=== PATIENT | male | born 1950 | race Caucasian/White ===

== ENCOUNTER → 2020-06-17 12:10 | Outpatient (CLI) | payer MEDICARE, SELFPAY ==
--- NOTE | ~2020-06-17 | XR_ITS ---
XR elbow LT min 3V DATE: 06/17/2020 12:21 INDICATION: Left elbow pain TECHNIQUE: 4 views COMPARISON: 07/07/2018 left elbow FINDINGS: Small dorsal olecranon process spur. Mild spurring of the coronoid process of the proximal ulna. Elevation of the anterior fat pad is suggested. Compared to 07/07/2018 there is slight angulation at the junction of the radial head and neck, suggest ing possible very subtle radial neck fracture. IMPRESSION: Very subtle nondisplaced radial neck fracture is suggested, with hemarthrosis Reviewed, dictated and finalized at location A. 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
== END ==
PROVIDERS: PCP Family Medicine; Visit Provider Nurse Practitioner Family
DX: M25.522 Pain in left elbow (principal)
CPT/HCPCS: 73080

== ENCOUNTER 2020-06-25 16:45 | Outpatient (CLI) | payer MEDICARE, SELFPAY | END 2020-06-25 16:46 | disposition home or self-care (01) | LOC: ANHCOVIDVC 16:46 | PROVIDERS: PCP Family Medicine | DX: Z23 Encounter for immunization (principal) | CPT/HCPCS: 0001A; 91300 ==

== ENCOUNTER 2020-07-16 16:39 | Outpatient (CLI) | payer MEDICARE, SELFPAY | END 2020-07-16 16:40 | disposition home or self-care (01) | LOC: ANHCOVIDVC 16:39 | PROVIDERS: PCP Family Medicine | DX: Z23 Encounter for immunization (principal) | CPT/HCPCS: 0002A; 91300 ==

== ENCOUNTER 2022-09-08 14:02 | Outpatient (CLI) | payer MEDICARE, SELFPAY ==
[2022-09-08 20:55] LABS: Alanine Aminotransferase 24 U/L (6-50); Albumin Level 4.1 g/dL (3.5-5.1); Alkaline Phosphatase 67 U/L (38-126); Anion Gap 4 mmol/L (8-16); Aspartate Amino Transferase 32 U/L (17-59); Bilirubin,Total 0.7 mg/dL (0.2-1.3); Blood Urea Nitrogen 10 mg/dL (9-20); Calcium 8.8 mg/dL (8.4-10.2); Carbon Dioxide 33 mmol/L (22-30); Chloride 103 mmol/L (98-107); Estimated Glomerular Filt Rate > 60; Glucose 91 mg/dL (65-110); Potassium 4.6 mmol/L (3.4-5.0); Sodium 140 mmol/L (137-145)
== END 2022-09-08 14:03 | disposition home or self-care (01) ==
LOC: ANHGOSHLAB 14:03
PROVIDERS: PCP Family Medicine; Visit Provider Family Medicine
DX: R79.89 Other specified abnormal findings of blood chemistry (principal); E78.5 Hyperlipidemia, unspecified; R41.3 Other amnesia
CPT/HCPCS: 36415; 80053; 84443

== ENCOUNTER 2022-10-24 10:45 | Emergency (ER) | payer MEDICARE, SELFPAY ==
[2022-10-24] VITALS (22 sets, daily range): BP systolic 132–174; BP diastolic 70–90; PULSE 75–97; RESP 12–25; TEMP 37.2; O2SAT 91–98
--- NOTE | ~2022-10-24 | CT_ITS ---
EXAMINATION: CT abdomen pelvis w con INDICATION: Epigastric and left upper quadrant pain TECHNIQUE: Computed tomographic images of the abdomen and pelvis were obtained after the administrati on of 100 cc of Omnipaque 350 intravenous contrast. The dose-length product (DLP) was 440.70 mGy-cm. Automated exposure control and iterative reconstruction technique were employed. COMPARISON: None available FINDINGS: Minimal dependent atelectasis is present in the lung bases. The heart size is normal. Punct ate calcifications in an otherwise normal spleen likely represent healed granulomatous disease. The l iver, pancreas, gallbladder, and adrenal glands are normal. The right kidney is unremarkable. There i s a 3.3 cm hyperattenuating mass of the posterior left mid kidney. No pathologically enlarged abdomin al or pelvic lymph nodes are identified. There is calcified atherosclerosis of the aorta and many of the other arteries. No free intraperitoneal gas or evidence of bowel obstruction. The mildly dilated appendix measures up to 8 mm in the tip. There is an appendicolith at the base of the appendix. There are bilateral extrarenal hernias containing fat. There is severe lumbar spondylosis at L5-S1. IMPRESSION: 1. Mild enlargement of the appendix which could reflect early appendicitis. Recommend correlation for right lower quadrant pain. 2. Indeterminate left kidney mass. Follow-up with nonemergent MRI or CT without and with contrast is recommended. Reviewed, dictated and finalized at location A. IMPRESSION: 1. Mild enlargement of the appendix which could reflect early appendicitis. Rec ommend correlation for right lower quadrant pain. 2. Indeterminate left kidney mass. Follow-up with nonemergent MRI or CT without and with contrast is recommended.
--- NOTE | ~2022-10-24 | XR_ITS ---
EXAMINATION: XR chest 2V DATE: 10/24/2022 13:17 INDICATION: Shortness of breath and cough TECHNIQUE: AP and lateral views of the chest are obtained. COMPARISON: 07/07/2018 FINDINGS: The lungs are free of acute opacities. No pleural effusion or pneumothorax. The cardiomedia stinal silhouette is normal. There is mild thoracic spondylosis. IMPRESSION: 1. No acute cardiopulmonary abnormality. Reviewed, dictated and finalized at location A.
--- NOTE | 2022-10-24 11:15 | ECG_ITS ---
Measurements Intervals [place] Rate: 85 P: 55 AK: 140 QRS: 131 QRSD: 89 T: 29 QT: 360 QTc: 429 Interpretive Statements SINUS RHYTHM RIGHT AXIS DEVIATION INCOMPLETE RIGHT BUNDLE BRANCH BLOCK DELAYED PRECORDIAL R/S TRANSITION BASELINE ARTIFACT- I, II, III, AVR, AVL, AVF, V5 BORDERLINE ECG NO PREVIOUS ECG AVAILABLE FOR COMPARISON Electronically Signed On 10-24-2022 13:14:42 CDT by Carlos A Vicente D.O.
[2022-10-24 11:46] LABS: Basophils Percent Auto 0.5 % (0.2-1.2); Eosinophils Percent Auto 0.4 % (0-4.4); Hematocrit 43.6 % (42.0-52.0); Hemoglobin 14.5 g/dL (14.0-18.0); Immature Granulocyte Absolute 0.01 K/mm3 (0.00-0.031); Immature Granulocyte Percent A 0.2 % (0-0.5); Lymphocytes Absolute Auto 0.98 K/mm3 (0.9-3.2); Lymphocytes Percent Auto 17.3 % (18.3-44.2); Mean Corpuscular HGB Conc 33.3 g/dl (32-36); Mean Corpuscular Hemoglobin 31.1 pg (26-34); Mean Corpuscular Volume 93.6 fl (80-100); Mean Platelet Volume 9.3 fl (7.4-10.4); Monocytes Absolute Auto 0.8 K/mm3 (0.1-0.6); Monocytes Percent Auto 14.6 % (2.6-8.5); Neutrophils Absolute Auto 3.8 K/mm3 (1.3-6.7); Platelet Count Result 156 k/mm3 (150-375); Red Blood Count 4.66 M/mm3 (4.6-6.20); Red Cell Distribution Width 12.3 % (11.5-14.5); White Blood Count 5.7 K/mm3 (4.5-10.0)
[2022-10-24 12:00] LABS: Alanine Aminotransferase 25 U/L (6-50); Albumin Level 4.5 g/dL (3.5-5.1); Alkaline Phosphatase 73 U/L (38-126); Anion Gap 6 mmol/L (8-16); Aspartate Amino Transferase 28 U/L (17-59); Bilirubin,Total 0.5 mg/dL (0.2-1.3); Blood Urea Nitrogen 9 mg/dL (9-20); Carbon Dioxide 30 mmol/L (22-30); Chloride 101 mmol/L (98-107); Estimated CRCL calculation 59 ml/min; Estimated Glomerular Filt Rate > 60; Glucose 112 mg/dL (65-110); Potassium 4.3 mmol/L (3.4-5.0); Sodium 137 mmol/L (137-145)
--- NOTE | 2022-10-24 13:57 | ED.SOB ---
HPI - SOB/Dyspnea General Chief Complaint: Shortness of Breath/Dyspnea Stated Complaint: sob/ cough Time Seen by Provider: 10/24/22 13:09 History of Present Illness HPI Narrative: Patient is a 71-year-old male with a history of hyperlipidemia presenting with cough. Patient states for the last couple of days he has had a dry cough associated with shortness of breath. Denies chest pain or lightheadedness. States that he is also been having some epigastric pain and he vomited this morning. Denies numbness or weakness, fevers, diarrhea, dysuria, leg swelling, back pain, flank pain. Related Data Home Medications Medication Instructions Recorded Confirmed multivitamin (One-A-Day Essential 1 tablet PO DAILY 06/24/20 09/08/22 tablet) donepezil 5 mg disintegrating 5 mg PO DAILY 09/08/22 09/08/22 tablet Allergies Allergy/AdvReac Type Severity Reaction Status Date / Time acetazolamide Allergy Severe Unknown Verified 10/24/22 13:28 erythromycin base Allergy Severe ITCHING Verified 10/24/22 13:28 ibuprofen Allergy Severe Diarrhea Verified 10/24/22 13:28 rofecoxib Allergy Severe DIARRHEA Verified 10/24/22 13:28 Sulfa (Sulfonamide Allergy Severe RASH Verified 10/24/22 13:28 Antibiotics) celecoxib AdvReac Unknown N/V Verified 10/24/22 13:28 DIARRHEA Review of Systems Review of Systems: All systems reviewed & are unremarkable except as noted in HPI and below PMFSH Past Medical History Medical History Chronic pain of left elbow Claustrophobia Epicondylitis, lateral, left Hyperlipidemia Lateral epicondylitis Memory impairment Radial neck fracture 05/2020 - Left Wears glasses Surgical History Surgical History History of cataract extraction with lens replacement (~05/11/91) History of eye surgery (~03/09/02) History of hemorrhoidectomy (~05/16/07) History of lumbar discectomy (~06/19/01) History of nasal septoplasty (~11/04/02) Family History Family History Other Breast cancer Family history of coronary artery disease Family history of malignant neoplasm of breast in first degree relative Heart disease Lung disease Social History Social History Smoking packs per day: 1 Smoking cigarettes per day: 20.0 Years smoked: 20 Smoking pack-years: 20.00 Smoking status: Former smoker Tobacco type: cigarettes Second hand tobacco smoke exposure: No Smoking end date: 04/25/84 Alcohol intake: current Substance use: never Substance use type: does not use Gender identity (if verbalized by the patient): Male Exam Narrative: GENERAL: Well-appearing, well-nourished, and in no acute distress. HEAD: Normocephalic, atraumatic. EYES: PERRLA and EOMI. ENT: Nares clear, no rhinorrhea or epistaxis. Mucous membranes moist. Edentulous NECK: Supple. CHEST: Scattered wheezing and crackles, no respiratory distress HEART: Regular rate and rhythm. No murmur heard. Normal peripheral pulses. ABDOMEN: Soft, tender in left upper quadrant and epigastrium, no guarding or rebound EXTREMITIES: Normal range of motion. No edema. SKIN: Warm, dry, no rash. NEURO: No focal deficits. Alert and oriented x3. PSYCH: Normal mood and affect. Course Vital Signs Vital signs: Vital Signs Temperature 99 F 10/24/22 11:12 Pulse Rate 88 10/24/22 11:12 Respiratory Rate 18 10/24/22 11:12 Blood Pressure 132/71 10/24/22 11:12 Pulse Oximetry 97 10/24/22 11:12 Oxygen Delivery Room Air 10/24/22 11:12 Temperature 99 F 10/24/22 11:12 Pulse Rate 85 10/24/22 17:01 Respiratory Rate 25 H 10/24/22 17:01 Blood Pressure 165/79 H 10/24/22 17:01 Pulse Oximetry 91 10/24/22 17:01 Oxygen Delivery Room Air 10/24/22 13:28 MDM - SOB/Dyspnea MDM Narrative M
[2022-10-24] MEDS: SODIUM CHLORIDE 0.9% IV 1,000 ML 999 ML IV CONT (14:38)
[2022-10-24 14:39] LABS: Lipase 94 U/L (23-300); Magnesium 2.4 mg/dL (1.6-2.3)
[2022-10-24 14:47] LABS: Appearance Urine Clear (Clear); Bilirubin Urine Negative (Negative); Blood Urine Negative (Negative); Color Urine Yellow (Yellow); Glucose Urine UA Negative (Negative); Ketones Urine Negative (Negative); Leukocyte Esterase Ur Negative LEU/UL (Negative); Nitrate Urine Negative (Negative); Protein Urine Negative (Negative); Urobilinogen Urine 0.2 mg/dL (<2.0); pH Urine 6.5 (5.0-9.0)
[2022-10-24 14:50] LABS: Add Urine Microscopic? NO
[2022-10-24 14:52] LABS: Troponin I < 0.012 ng/mL (0.000-0.034)
[2022-10-24 15:22] LABS: Influenza A QL RT-PCR Negative (Negative); Influenza B QL RT-PCR Negative (Negative); RSV RNA, RT-PCR Negative (Negative); SARS-CoV-2 RNA PCR Negative (Negative)
== END 2022-10-24 17:37 | disposition home or self-care (01) ==
PROVIDERS: General Practice; Emergency Provider Emergency Medicine; PCP Family Medicine
DX: R06.02 Shortness of breath (principal); R05.9 Cough, unspecified; Z20.822 Contact with and (suspected) exposure to COVID-19
CPT/HCPCS: 36415; 71046; 74177; 80053; 81003; 83690; 83735; 84484; 85025; 87637; 93005; 96360; 99284; J7030; Q9967

== ENCOUNTER 2023-03-30 10:19 | Outpatient (CLI) | payer MEDICARE, SELFPAY ==
--- NOTE | ~2023-03-30 | MR_ITS ---
EXAMINATION: MR abdomen wo/w con DATE: 03/30/2023 11:22 INDICATION: Other specified disorders of kidney and ureter . Left renal mass. TECHNIQUE: Magnetic resonance imaging (MRI) of the abdomen was performed without and with 16 mL Multi shaina intravenous contrast. Sequences included coronal T2-weighted SS-FSE, coronal and axial FS 2D-F IESTA, axial STIR FSE, axial T2-weighted SS-FSE, axial T2-weighted FS SS-FSE, axial diffusion-weighte d SE, axial dual-echo T1-weighted FSPGR, and axial and coronal T1-weighted LAVA. Postcontrast axial T 1-weighted LAVA images were obtained in a time course. Postcontrast coronal T1-weighted LAVA images w ere obtained. COMPARISON: None. FINDINGS: Pectus excavatum the sternum exerting mild mass effect upon the anterior wall of the right ventricle. Heart size is normal. No pericardial effusion. Bilateral gynecomastia. Liver, gallbladder, pancreas and bilateral adrenal glands are normal. Multiple low signal intensity granulomatous scattered throug hout the spleen. Right kidney is normal. 3.2 x 3.1 x 1.9 cm enhancing exophytic mass arising from the posterior lower pole of the left kidney consistent with renal cell carcinoma. Visualized portion of the bowels are unremarkable. No pathologically enlarged abdominal lymphadenopathy. Mild lumbar levosc oliosis. Moderate right-sided predominant disc height loss with enhancing fibrovascular degenerative endplate changes at the right side of the L3-L4 disc space which surrounds a small nonenhancing Schmo rl's node along the superior endplate of L4. There is severe disc height loss with developing fusion at L5-S1. No other pathologic marrow replacing process. IMPRESSION: 1. 3.2 cm enhancing renal cell carcinoma at the lower pole of the left kidney. No evident metastatic disease. Reviewed, dictated and finalized at location A. IDER
== END 2023-03-30 10:20 | disposition home or self-care (01) ==
PROVIDERS: PCP Family Medicine; Visit Provider Family Medicine
DX: N28.89 Other specified disorders of kidney and ureter (principal)
CPT/HCPCS: 74183; A9577

== ENCOUNTER 2023-08-24 10:40 | Outpatient (CLI) | payer MEDICARE, SELFPAY ==
--- NOTE | ~2023-08-24 | XR_ITS ---
EXAMINATION: XR cervical spine 4-5V DATE: 08/24/2023 11:05 INDICATION: Neck pain. TECHNIQUE: 6 views of cervical spine including flexion and extension views were obtained. COMPARISON: None. FINDINGS: There is an 8 degrees levocurvature of the cervicothoracic spine. There is kyphosis of cerv ical spine. There is no abnormal motion on flexion or extension. There is mild chronic anterior wedgi ng of C6 vertebral body. There is interbody fusion at C6-C7. There is severely decreased disc height at C5-C6. There is multilevel facet joint osteoarthritis, severe on the right at C4-C5 and the left a t C2-C3, C3-C4, and C4-C5. There is mild central canal stenosis at C5-C6 and C6-C7. No prevertebral s oft tissue swelling. IMPRESSION: 1. Severe cervical spondylosis. Reviewed, dictated and finalized at location A.
== END 2023-08-24 10:41 ==
PROVIDERS: PCP Family Medicine; Visit Provider Emergency Medicine
DX: M47.892 Other spondylosis, cervical region (principal)
CPT/HCPCS: 72050

== ENCOUNTER 2024-09-25 13:36 | Outpatient (CLI) | payer MEDICARE, SELFPAY ==
[2024-09-25 22:34] LABS: Alanine Aminotransferase 21 U/L (6-50); Albumin Level 4.2 g/dL (3.5-5.1); Alkaline Phosphatase 62 U/L (38-126); Anion Gap 6 mmol/L (4-12); Aspartate Amino Transferase 40 U/L (17-59); Bilirubin,Total 0.4 mg/dL (0.2-1.3); Blood Urea Nitrogen 8 mg/dL (9-20); Calcium 9.1 mg/dL (8.4-10.2); Carbon Dioxide 30 mmol/L (22-30); Chloride 103 mmol/L (98-107); Estimated Glomerular Filt Rate > 60; Glucose 87 mg/dL (65-110); Potassium 4.9 mmol/L (3.4-5.0); Sodium 139 mmol/L (137-145); Total Protein 7.1 g/dL (6.3-8.2)
== END 2024-09-25 13:37 | disposition home or self-care (01) ==
LOC: ANHGOSHLAB 13:37
PROVIDERS: PCP Family Medicine; Visit Provider Family Medicine
DX: E78.5 Hyperlipidemia, unspecified (principal)
CPT/HCPCS: 36415; 80053